=== PATIENT | female | born 1955 | race Caucasian/White ===

== ENCOUNTER 2023-10-05 13:52 | Outpatient (OUT) | payer MEDICARE, MEDICAID, SELFPAY ==
--- NOTE | 2023-10-05 13:54 | XR_ITS ---
The [address] [address] Patient Name: EDIE DIA MRN: [id number] date: 1955 Sex: F Assigned Patient Location: [facility] Current Patient Location: [facility] Accession/Order Number: [id number] Exam Date: 10/05/2023 13:59 Report Date: 10/05/2023 14:14 At the request of: OLU TREVIÑO Procedure: XR chest 2V EXAM: XR chest 2V HISTORY: Dyspnea on exertion R06.09 . Shortness of breath with exertion. COMPARISON: None. TECHNIQUE: Upright PA and lateral chest x-ray FINDINGS: The heart is not enlarged and the vasculature is not distended. No acute infiltrate, effusion or pneumothorax is identified. Degenerative changes are seen in the spine. A hiatal hernia is noted. XR/XR chest 2V IMPRESSION: No acute infiltrate or evidence of cardiac decompensation. A hiatal hernia is noted. Direct comparison with a previous study may be helpful in determining the chronicity of these findings. Electronically authenticated by: KATALINA GAINES Date: 10/05/2023 14:14
== END 2023-10-05 13:53 | disposition home or self-care (01) ==
LOC: RAD 13:52
PROVIDERS: PCP Physician Assistant; Visit Provider Physician Assistant
DX: R06.09 Other forms of dyspnea (principal)
CPT/HCPCS: 71046

== ENCOUNTER 2023-12-07 08:03 | Outpatient (OUT) | payer MEDICARE, MEDICAID, SELFPAY ==
--- OUTSIDE RECORDS SUMMARY | 2023-12-07 08:07 | XMS_ITS | CCD ---
Author Organization [facility] Care Team Providers Care Director Of Instruction Name Role Phone GLORIA ALAN Attending Unavailable Unavailable Primary Care Provider OLU Jacobs Primary Care Unavailable Allergies Allergy Classification Reported Allergen(s) Allergy Type Date of Onset Reaction(s) Facility (2 sources) Meperidine; Translations: [MEPERIDINE] Drug Allergy 08-26-2019 [place], [place] Medications Completed/Discontinued Medications Medication Drug Class(es) Dates Sig (Normalized) Sig (Original) LORazepam 1 mg oral tablet (1 source) Benzodiazepine Start: 04-15-2020 End: 04-15-2020 LORazepam (ATIVAN) tablet 1 mg Problems Problem Classification Problem Date Documented Da te Episodic/Chronic Anxiety disorders (1 source) Anxiety; Translations: [Anxiety] Chronic Other lower respiratory disease (2 sources) Shortness of breath Onset: 09-07-2023 Episodic Results Test Name Value Interpretation Reference Range [facility] Basic Metabolic Panelon 03-29 Anion gap [Moles/Vol] 13 mmol/L 9 - 17 mmol/L [place], [place] Bun/Cre Ratio NOT REPORTED [place], [place] Calcium [Mass/Vol] 9.4 mg/dL 8.6 - 10.4 mg/dL [place] Chloride [Moles/Vol] 98 mmol/L 98 - 107 mmol/L [place] CO2 [Moles/Vol] 25 mmol/L 20 - 31 mmol/L [place] Creatinine [Mass/Vol] 0.79 mg/dL 0.5 - 0.9 mg/d L [place] GFR >60 >60 mL/min [place] GFR Non- >60 >60 mL/min [place] GFR/1.73 sq M predicted among non-blacks MDRD (S/P/Bld) [Vol rate/Area] [place], [place] Comment on above: Average GFR for 60-6 9 years old: 85 mL/min/1.73sq m Chronic Kidney Disease: <60 mL/min/1.73sq m Kidney failure: <15 mL/min/1.73sq m eGFR calculated using average adult body mass. Additional eGFR calculator available at: http://www.[employer]/multiple_crcl_2012.htm GFR/1.73 sq M predicted among non-blacks MDRD (S/P/Bld) [Vol rate/Area] NOT REPORTED [place] Glucose [Mass/Vol] 145 mg/dL High 70 - 99 mg/dL [place], [place] Potassium [Moles/Vol] 3.4 mmol/L Low 3.7 - 5.3 mmol /L [place] Sodium [Moles/Vol] 136 mmol/L 135 - 144 mmol/L [place] Urea nitrogen [Mass/Vol] 9 mg/dL 8 - 23 mg/dL [place] Basic Metabolic Profon 04-15 (cont.) Normal [facility] Comment on above: Result Comment: Aver age GFR for 60-69 years old: 85 mL/min/1.73sq m Chronic Kidney Disease: <60 mL/min/1.73sq m Kidney failure: <15 mL/min/1.73sq m eGFR calculated using average adult body mass. Additional eGFR calculator available at: http://www.[employer]/multiple_crcl_2012.htm Performed By: #### B MP, MG, TSHX, FT4 #### [facility] [address] [facility] [place] [address] Welding Pantograph Operator: Luis Jenkins DO Anion gap [Moles/Vol] 13 mmol/L Normal 9-17 [facility] Comment on above: Performed By: #### B MP, MG, TSHX, FT4 #### [facility] [address] [facility] [place] [address] Welding Pantograph Operator: Luis Jenkins DO Calcium [Mass/Vol] 9.4 mg/dL Normal 8.6-10.4 [facility] Comment on above: Performed By: #### B MP, MG, TSHX, FT4 #### [facility] [place] [address] Welding Pantograph Operator: Luis Jenkins DO Chloride [Moles/Vol] 98 mmol/L Normal 98-107 [facility] Comment on above: Performed By: #### B MP, MG, TSHX, FT4 #### [facility] [address] [place], [place] [address]e [facility] [place] [address] Welding Pantograph Operator: Luis Jenkins DO CO2 [Moles/Vol] 25 mmol/L Normal 20-31 [facility] Comment on above: Performed By: #### B MP, MG, TSHX, FT4 #### [facility] [address] [place], [place] [address] [facility] [place] [address] Welding Pantograph Operator: Luis Jenkins DO Creatinine [Mass/Vol] 0.79 mg/dL Normal 0.50-0.90 [facility] Comment on above: Performed By: #### B MP, MG, TSHX, FT4 #### [facility] [address] [place] [address]. [place] [address] Welding Pantograph Operator: Luis Jenkins DO GFR, Amer >60 Normal >60 [facility] Comment on above: Performed By: #### B MP, MG, TSHX, FT4 #### [facility] [address] [place], [place] [address] [facility] [place] [address] Welding Pantograph Operator: Luis Jenkins DO GFR,non Amer >60 Normal >60 [facility] Comment on above: Performed By: #### B MP, MG, TSHX, FT4 #### [facility] [address] [place], [place] [address] [place] [address] Welding Pantograph Operator: Luis Jenkins DO Glucose [Mass/Vol] 145 mg/dL High 70-99 [facility] Comment on above: Performed By: #### B MP, MG, TSHX, FT4 #### [facility] [address] [place] [address] Welding Pantograph Operator: Luis Jenkins DO Potassium [Moles/Vol] 3.4 mmol/L Low 3.7-5.3 [facility] Comment on above: Performed By: #### B MP, MG, TSHX, FT4 #### [facility] [address] [place] [address] Wel[employer] Pantograph Operator: Luis Jenkins DO Sodium [Moles/Vol] 136 mmol/L Normal 135-144 [facility] Comment on above: Performed By: #### B MP, MG, TSHX, FT4 #### [facility] [address] [place], [place] [address] [facility] [place] [address] Welding Pantograph Operator: Luis Jenkins DO Urea nitrogen [Mass/Vol] 9 mg/dL Normal 8-23 [facility] Comment on above: Performed By: #### B MP, MG, TSHX, FT4 #### [facility] [address] [place] [address]. [place] [address] Welding Pantograph Operator: Luis Jenkins DO BUN/CRE Ratio NOT REPORTED Normal 9-20 [facility] Comment on above: Performed By: #### B MP, MG, TSHX, FT4 #### [facility] [facility] [place] [address] Welding Pantograph Operator: Luis Jenkins DO Staging: NOT REPORTED Normal [facility] Comment on above: Performed By: #### B MP, MG, TSHX, FT4 #### [facility] [place] [address] Welding Pantograph Operator: Luis Jenkins DO Magnesiumon 04-15-2020 Magnesium [Mass/Vol] 1.8 mg/dL Normal 1.6-2.6 [facility] Comment on above: Performed By: #### B MP, MG, TSHX, FT4 #### [facility] [address] [place] [address] Welding Pantograph Operator: Luis Jenkins DO Magnesium [Mass/Vol] 1.8 mg/dL 1.6 - 2.6 mg/dL [place] Otheron 04-15-2020 Interpretation and review of laboratory results Abnormal [place], [place] T4, Freeon 04-15-2020 Thyroxine, Free 1.27 ng/dL 0.93 - 1.7 ng/dL [place] TSH w/reflex to FT4on 2019 TSH Qn 6.54 m[IU]/L High 0.30-5.00 [facility] Comment on above: Performed By: #### B MP, MG, TSHX, FT4 #### [facility] [address] [place] [address] Welding Pantograph Operator: Luis Jenkins DO TSH with Reflexon 04-15-2020 TSH Qn 6.54 m[IU]/L [place] Thyroxine, Freeon 04-15-2020 Thyroxine, Free 1.27 ng/dL Normal 0.93-1.70 [facility] Comment on above: Performed By: #### B MP, MG, TSHX, FT4 #### [facility] [address] [place] [address] Welding Pantograph Operator: Luis Jenkins DO Vital Signs Date Time Vital Sign Value Performing Clinician Kelechi mukherjee 04-15-2020 01:24-0400 BMI (Body Mass Index) 46.59 kg/m2 [place], [place] 04-15-2020 01:24-0400 Body Temperature 97.59 [degF] [facility] [place], [place] 04-15-2020 01:24-0400 Body weight 127.01 kg [place] 04-15-2020 01:24-0400 BP Diastolic 92 mm[Hg] [facility] [place] 04-15-2020 01:24-0400 BP Systolic 152 mm[Hg] [place] 04-15-2020 01:24-0400 Height 165.1 cm [facility] [place] 04-15-2020 01:24-0400 Pulse (Heart Rate) 105 /min [facility] [place] 04-15-2020 01:24-0400 Pulse Oximetry 98 % [place] 04-15-2020 01:24-0400 Respiratory Rate 16 /min [place] Encounters Encounter Date Encounter Type Care Provider Facility Start: 09-07-2023 End: 09-07-2023 Emergency department patient visit OLU Jeremiah [facility] Start: 04-15-2020 End: 04-15-2020 Emergency department patient visit [facility] Start: 04-15-2020 End: 04-15-2020 Emergency department patient visit Gloria Alan Work Phone: [facility] ED Comment on above: Anxiety (Primary Dx) Procedures Date Procedure Procedure Detail Performing Clinician Start: 04-15-2020 Assay of free thyroxine GLORIA ALAN Start: 04-15-2020 Assay of magnesium WEND LEILA MOUNAIFELS Start: 04-15-2020 [facility] of thyroid stimulating [facility] Start: 04-15-2020 Basic metabolic pane l calcium total GLORIA ALAN Start: 04-15-2020 Assay of free thyroxine [facility] B Mounaifels Work Phone: Start: 04-15-2020 Assay of magnesium [facility] B Kreifels Work Phone: Start: 04-15-2020 Assay of thyroid stimulating hormone tsh Cornelleli Alan Work Phone: Start: 04-15-2020 Basic metabolic pane l calcium total Gloria Alan Work Phone: Plan of Treatment Date Care Activity Detail Author Start: 04-29-2020 Influenza vaccination Flu vaccine (# 1) [place], [place] Payers Date Payer Category Payer Medicare [id number] 2022 Medicaid [id number] 1955 Unknown [id number] Social History Date Type Detail Facility Start: 04-15-2020 Tobacco smoking stat us NHIS Never smoker [place] Start: 04-15-2020 Alcohol intake Ex-drinker (finding) [place] Sex Assigned At Not on file [place] Summary Purpose Family History No Family History Records FoundNo Family History Records Found Advance Directives No Advanced Directives Records FoundDocuments on File Type Date Recorded Patient [employer] Expl anation Advance Directives and Living Will Power of Parole Board Member Discharge Instructions * Instructions* Gloria Alan MD - 04/15/2020 Try to reduce her stress. If at anytime you on hurt yourself return to the emergency department. * Attachments The following attachments cannot be sent through Care Everywhere. * Anxiety Disorder (Gibraltarian) documented in this encounter Assessments Diagnosis Anxiety Anxiety state, unspecified Additional Source Comments INFORMATION SOURCE (unrecogn ized section and content) DATE CREATED AUTHOR 04/15/2020 [facility] DATE CREATED AUTHOR 'S ORGANIZ ATION 09/11/2023 [facility] Reason for Visit (unrecogniz ed section and content) Reason Comments Anxiety FOR RECORDS PERTAINING TO PATIENTS WHO ARE OR HAVE BEEN ENROLLED IN A CHEMICAL DEPENDENCY/SUBSTANCEABUSE PROGRAM, SOME INFORMATION MAY BE OMITTED. This clinical summary was aggregated from multiple sources. Caution should be exercised in using it in the provision of clinical care. This summary normalizes information from multiple sources, and as a consequence, information in this document may materially change the coding, format and clinical context of patient data. In addition, data may be omitted in some cases. CLINICAL DECISIONS SHOULD BE BASED ON THE PRIMARY CLINICAL RECORDS. [facility], [facility]. provides no warranty or guarantee of the accuracy or completeness of information in this document.
[2023-12-07 08:22] LABS: Hemoglobin 7.2 g/dL (12.0-16.0)
--- NOTE | 2023-12-07 08:36 | CT_ITS ---
[address] [address] Patient Name: EDIE DIA MRN: [id number] date: 1955 Sex: F Assigned Patient Location: CT Current Patient Location: CT Accession/Order Number: [id number] Exam Date: 12/07/2023 08:30 Report Date: 12/07/2023 09:30 At the request of: LACI AYON Procedure: CT chest wo con EXAMINATION: CT chest wo con HISTORY: Shortness Of Breath R06.02 COMPARISON: No relevant comparison available. TECHNIQUE: Multi-planar CT images were created with IV contrast. Axial, Coronal, and Sagittal images. Dose reduction techniques were achieved by using automated exposure control and/or adjustment of mA and/or kV according to patient size and/or use of iterative reconstruction technique. FINDINGS: LUNGS: No significant pulmonary nodule or mass. Minimal scattered linear opacities, atelectasis favored PLEURA: No mass, effusion, or pneumothorax. VASCULATURE: No abnormality. ANIBAL: No mass or adenopathy. MEDIASTINUM: No mass or adenopathy. CARDIAC: No enlargement, pericardial thickening, or significant calcification. AORTA: No aneurysm or dissection. CHEST WALL: No mass or axillary adenopathy. BONES: No bone lesion or fracture. LIMITED ABDOMEN: No suspicious findings. Limited images of the upper abdomen. OTHER: Moderate posterior diaphragmatic hernia containing mesentery and stomach CT/CT chest wo con IMPRESSION: Posterior diaphragmatic hernia, moderate in size Electronically authenticated by: LEROY ACEVEDO Date: 12/07/2023 09:30
--- NOTE | 2023-12-07 10:36 | RT_ITS ---
The [facility] Test Date: 2023-12-07 Pat Name: EDIE DIA Department: Room: - Gender: Female Director Of Hemophilia: Adan Black RRT : 1955 Requested By: Eb Aponte Order Number: [id number] Reading MD: Eb Aponte Interpretive Statements Pulmonary function testing was completed according to ATS criteria. Findings were considered accurate and reproducible, with exception of DLCO which did not meet ATS standards. No bronchodilator was administered due to normal spirometric values. Spirometry: -FEV1/FVC: Normal @ 86% -FEV1: Low normal @ 80% -FVC: Mild-moderately reduced @ 71% Lung volumes by plethysmography: -RV: Reduced @ 72% -TLC: Normal @ 83% Diffusion capacity: -DLCO: Moderate reduction @ 64% when corrected for Hb 7.2g/dL Flow-volume loop: -Moderate restrictive pattern Impressions: -Spirometry suggests mild-moderate restriction, with mildly decreased RV and normal TLC - this can be seen as an obesity pattern (stated BMI 44.8). Moderate diffusion impairment - unclear how accurate this is. Anemia is present with Hg 7.2g/dL- patient's PCP Dr. Loera was informed. Clinical correlation required. Electronically Signed On 12-14-2023 6:57:55 EDT by Eb Aponte
== END 2023-12-07 08:04 | disposition home or self-care (01) ==
LOC: CT 08:03
PROVIDERS: PCP Physician Assistant; Visit Provider Internal Medicine
DX: R06.02 Shortness of breath (principal); K44.9 Diaphragmatic hernia without obstruction or gangrene; Z77.22 Contact with and (suspected) exposure to environmental tobacco smoke (acute) (chronic)
CPT/HCPCS: 36415; 71250; 85018; 94010; 94726; 94729